=== PATIENT | male | born 1985 | race Native Hawaiian/Other Pacific Islander ===

== ENCOUNTER 2016-05-28 00:46 | Emergency (ER) | payer OTHER ==
[~2016-05-28] VITALS: Ht 180.3 cm; Wt 113.4 kg
[2016-05-28] MEDS ORDERED: GABA300C2 PO (02:01)
[2016-05-28] MEDS ORDERED: ATEN25TA21 PO (02:01)
[2016-05-28] MEDS ORDERED: LITHIUM CARB150 MG PO (02:02)
[2016-05-28] MEDS ORDERED: LATUDA20 MG PO (02:03)
== END 2016-05-28 03:17 | disposition home or self-care (01) ==
LOC: ED 00:46
DX: J06.9 Acute upper respiratory infection, unspecified (principal); J02.9 Acute pharyngitis, unspecified
CPT/HCPCS: 87804; 99283

== ENCOUNTER 2017-08-22 01:18 | Emergency (ER) | payer OTHER ==
[~2017-08-22] VITALS: Ht 175.3 cm; Wt 132.9 kg
[~2017-08-22 01:18] MED LIST: ATEN25TA21 PO; GABA300C2 PO; LATUDA20 MG PO; LITHIUM CARB150 MG PO
[2017-08-22 01:28] VITALS: TEMP 99.3
[2017-08-22 02:42] LABS: PLATELET COUNT 232 K/uL (142-355)
[2017-08-22 02:44] LABS: POTASSIUM 3.2 mmol/L (3.6-5.2)
[2017-08-22 07:55] VITALS: BP 118/72
== END 2017-08-22 09:25 | disposition home or self-care (01) ==
LOC: ED 01:18
PROVIDERS: Specialist
DX: R60.9 Edema, unspecified (principal); X30.XXXA Exposure to excessive natural heat, initial encounter; Y92.89 Other specified places as the place of occurrence of the external cause
CPT/HCPCS: 80048; 85027; 99283

== ENCOUNTER 2021-07-19 14:32 | Emergency (ER) | payer OTHER ==
[~2021-07-19] VITALS: Ht 180.3 cm; Wt 132.9 kg
[2021-07-19 16:25] VITALS: BP 152/89; TEMP 97.4
== END 2021-07-19 16:25 | disposition home or self-care (01) ==
LOC: ED 14:32
DX: R60.0 Localized edema (principal)
CPT/HCPCS: 96372; 99283; J1940

== ENCOUNTER 2021-07-22 08:25 | Emergency (ER) | payer OTHER ==
[~2021-07-22] VITALS: Ht 180.3 cm; Wt 132.9 kg
[2021-07-22 09:15] VITALS: BP 138/78; TEMP 97.1
== END 2021-07-22 09:15 | disposition home or self-care (01) ==
LOC: ED 08:25
DX: T63.301A Toxic effect of unspecified spider venom, accidental (unintentional), initial encounter (principal); R22.42 Localized swelling, mass and lump, left lower limb; X58.XXXA Exposure to other specified factors, initial encounter; Y92.89 Other specified places as the place of occurrence of the external cause
CPT/HCPCS: 96372; 99283; J0696; J1885

== ENCOUNTER 2021-08-05 09:23 | Emergency (ER) | payer OTHER ==
[~2021-08-05] VITALS: Ht 180.3 cm; Wt 135.2 kg
[2021-08-05 09:35] VITALS: BP 151/73; TEMP 97
[2021-08-05 10:23] LABS: PLATELET COUNT 197 K/uL (142-355)
[2021-08-05 10:25] LABS: POTASSIUM 3.2 mmol/L (3.6-5.2)
== END 2021-08-05 15:28 | disposition home or self-care (01) ==
LOC: ED 09:23
PROVIDERS: Hospitalist
DX: F31.89 Other bipolar disorder (principal); Y09 Assault by unspecified means; Y92.89 Other specified places as the place of occurrence of the external cause
CPT/HCPCS: 80053; 80143; 80179; 80307; 80320; 81000; 85027; 93005; 99285